=== PATIENT | female | born 1950 | race Caucasian/White ===

== ENCOUNTER 2022-10-31 10:47 | Emergency (ER) | payer MEDICARE ==
[~2022-10-31] VITALS: Ht 160 cm; Wt 80.0 kg
[2022-10-31] VITALS (7 sets, daily range): BP systolic 110–122; BP diastolic 54–93
[2022-10-31] MEDS ORDERED: ZYRTEC10 M5 PO (12:06)
[2022-10-31] MEDS ORDERED: AMOX/K CLAV875 M1 PO (13:39)
[2022-10-31] MEDS ORDERED: TAM75CAP PO (13:39)
[2022-10-31] MEDS ORDERED: LEVOCETIRIZINE D5 MG PO (13:39)
[2022-10-31] MEDS ORDERED: BENZONATATE200 MG PO (13:39)
[2022-10-31] MEDS ORDERED: FLONASE AL50 MCG/AC1 (13:40)
== END 2022-10-31 14:07 | disposition home or self-care (01) ==
LOC: ED 10:47
DX: J10.1 Influenza due to other identified influenza virus with other respiratory manifestations (principal); J32.9 Chronic sinusitis, unspecified; Z86.73 Personal history of transient ischemic attack (TIA), and cerebral infarction without residual deficits; Z20.822 Contact with and (suspected) exposure to COVID-19

== ENCOUNTER 2023-12-11 10:29 | Emergency (ER) | payer MEDICARE ==
[~2023-12-11] VITALS: Ht 160 cm; Wt 77.0 kg
[2023-12-11] VITALS (9 sets, daily range): BP systolic 104–131; BP diastolic 58–68
[~2023-12-11 10:29] MED LIST: AMOX/K CLAV875 M1 PO; BENZONATATE200 MG PO; FLONASE AL50 MCG/AC1; LEVOCETIRIZINE D5 MG PO; TAM75CAP PO; ZYRTEC10 M5 PO
[2023-12-11] MEDS ORDERED: DILT-XR240 MG PO (10:45)
[2023-12-11] MEDS ORDERED: ZESTRIL40 MG PO (10:45)
[2023-12-11] MEDS ORDERED: DESYREL50 MG PO (10:46)
[2023-12-11] MEDS ORDERED: VITAMIN D-32000 UNI1 (10:46)
[2023-12-11] MEDS ORDERED: LEVOTHYROXIN112 MC1 PO (10:46)
[2023-12-11] MEDS ORDERED: MONTELUKAST SOD10 MG PO (10:47)
[2023-12-11] MEDS ORDERED: EZALLOR SPRINKL10 MG (10:47)
[2023-12-11] MEDS ORDERED: TRIAMCINOLON 0.1% MT (10:48)
[2023-12-11] MEDS ORDERED: OS-CAL 500500 M1 PO (10:48)
[2023-12-11] MEDS ORDERED: ELIQUIS5 MG PO (10:49)
[2023-12-11] MEDS ORDERED: LEXAPRO10 MG PO (10:49)
[2023-12-11] MEDS ORDERED: CENTRUM SILVER1 TA1 (10:50)
[2023-12-11] MEDS ORDERED: FISH OIL1000 M1 PO (10:51)
[2023-12-11] MEDS ORDERED: methylPREDNISolone SODIUM SUCC 125 MG/2 ML SDV IM ONE (11:50)
[2023-12-11] MEDS ORDERED: KETOROLAC TROMETHAMINE 30 MG/ML SDV IM ONE (11:50)
[2023-12-11] MEDS ORDERED: MELOXICAM7.5 MG PO (12:32)
[2023-12-11] MEDS ORDERED: [UNRECOGNIZED DRUG - OTHER] TOP (12:32)
[2023-12-11] MEDS ORDERED: MEDDOSEPAK PO (12:32)
== END 2023-12-11 13:03 | disposition home or self-care (01) ==
LOC: ED 10:29
DX: I83.12 Varicose veins of left lower extremity with inflammation (principal); I83.11 Varicose veins of right lower extremity with inflammation; M70.62 Trochanteric bursitis, left hip; I10 Essential (primary) hypertension; E78.5 Hyperlipidemia, unspecified; Z86.73 Personal history of transient ischemic attack (TIA), and cerebral infarction without residual deficits